=== PATIENT | female | born 1980 | race Hispanic/Latino ===

== ENCOUNTER 2019-03-30 04:56 | Emergency (ER) | payer SELFPAY ==
[~2019-03-30] VITALS: Ht 160 cm; Wt 100.0 kg
[~2019-03-30 04:56] MED LIST: CIPRO500 MG OR; NO MEDS
[2019-03-30 05:30] LABS: HEMATOCRIT 40.8 % (37.0-47.0); IMMATURE GRANULOCYTES 0.3 % (0.0-5.0); MEAN CELL VOLUME 90.9 fL CALC (80.0-100.0); MEAN CORPUSCULAR HGB 31.2 pG CALC (26.0-32.0); MEAN CORPUSCULAR HGB CONC 34.3 g/L CALC (32.0-36.0); NEUT# 5.39 thou/uL (2.00-7.15); RED BLOOD COUNT 4.49 mill/uL (4.20-5.60); RED CELL DISTRI WIDTH 12.8 % (11.5-15.5)
[2019-03-30 05:37] LABS: URINE BILIRUBIN - DIPSTICK NEGATIVE (NEGATIVE); URINE BLOOD DIPSTICK NEGATIVE (NEGATIVE); URINE COLOR YELLOW; URINE GLUCOSE - DIPSTICK NEGATIVE (NEGATIVE); URINE KETONE NEGATIVE (NEGATIVE); URINE LEUK ESTERASE NEGATIVE (NEGATIVE); URINE NITRITE - DIPSTICK NEGATIVE (Negative); URINE PROTEIN - DIPSTICK NEGATIVE (NEG-TRACE); URINE UROBILINOGEN - DIPSTICK 0.2 E.U./dL (0.2)
[2019-03-30 05:41] LABS: ALBUMIN 4.5 g/dL (3.2-5.0); ALKALINE PHOSPHATASE 111 u/l (38-126); AMYLASE 34 u/l (30-110); ANION GAP 14 (6-22 (CALC)); BILIRUBIN, TOTAL 0.3 mg/dL (0.0-1.4); BUN 16 mg/dL (7-17); BUN/CREATININE RATIO 23 (12-20 (CALC)); CARBON DIOXIDE 25 mmol/l (22-30); CHLORIDE 105 mmol/l (95-108); CREATININE 0.7 mg/dL (0.5-1.0); GFR > 60 ML/MIN (>=60 (CALC)); GFR FOR AFR.AMER. > 60 ML/MIN (>=60 (CALC)); LIPASE 69 u/l (23-300); POTASSIUM 4.1 mmol/l (3.5-5.1); SGOT/AST 23 u/l (14-36); SODIUM 140 mmol/l (137-146); TOTAL PROTEIN 7.8 g/dL (6.3-8.2)
[2019-03-30] MEDS ORDERED: TORADOL PO (06:34)
[2019-03-30 06:51] VITALS: BP 112/58
== END 2019-03-30 06:45 | disposition home or self-care (01) | DRG 446 ==
LOC: ED 04:56
PROVIDERS: Family Medicine
DX: K80.20 Calculus of gallbladder without cholecystitis without obstruction (principal); K59.00 Constipation, unspecified

== ENCOUNTER 2020-02-06 14:28 | Emergency (ER) | payer BC ==
[~2020-02-06 14:28] MED LIST changes: +TORADOL PO
[2020-02-06 15:21] LABS: HEMATOCRIT 36.9 % (37.0-47.0); HEMOGLOBIN 12.7 g/dl (12.0-16.0); IMMATURE GRANULOCYTES 0.5 % (0.0-5.0); MEAN CELL VOLUME 90.9 fL CALC (80.0-100.0); MEAN CORPUSCULAR HGB 31.3 pG CALC (26.0-32.0); MEAN CORPUSCULAR HGB CONC 34.4 g/dL CAL (32.0-36.0); NEUT# 7.57 thou/uL (2.00-7.15); RED BLOOD COUNT 4.06 mill/uL (4.20-5.60); RED CELL DISTRI WIDTH 12.7 % (11.5-15.5)
[2020-02-06 15:28] LABS: URINE BILIRUBIN - DIPSTICK NEGATIVE (NEGATIVE); URINE BLOOD DIPSTICK LARGE (NEGATIVE); URINE COLOR YELLOW; URINE GLUCOSE - DIPSTICK NEGATIVE (NEGATIVE); URINE KETONE NEGATIVE (NEGATIVE); URINE LEUK ESTERASE TRACE (NEGATIVE); URINE NITRITE - DIPSTICK POSITIVE (Negative); URINE PH 6.5 (4.5-8.0); URINE PROTEIN - DIPSTICK NEGATIVE (NEG-TRACE); URINE UROBILINOGEN - DIPSTICK 0.2 E.U./dL (0.2)
[2020-02-06 15:30] LABS: ALBUMIN 4.2 g/dL (3.2-5.0); ALKALINE PHOSPHATASE 93 u/l (38-126); ANION GAP 13 (6-22 (CALC)); BILIRUBIN, TOTAL 0.3 mg/dL (0.0-1.4); BUN 12 mg/dL (7-17); BUN/CREATININE RATIO 24 (12-20 (CALC)); CARBON DIOXIDE 21 mmol/l (22-30); CHLORIDE 105 mmol/l (95-108); CREATININE 0.5 mg/dL (0.5-1.0); GFR > 60 ML/MIN (>=60 (CALC)); GFR FOR AFR.AMER. > 60 ML/MIN (>=60 (CALC)); LIPASE 35 u/l (23-300); POTASSIUM 3.8 mmol/l (3.5-5.1); SGOT/AST 21 u/l (14-36); SODIUM 135 mmol/l (137-146); TOTAL PROTEIN 7.3 g/dL (6.3-8.2)
[2020-02-06 15:35] LABS: AMYLASE < 30 u/l (30-110); URINE BACTERIA FEW hpf; URINE RBC 25-50 RBC/hpf (0-5); URINE SQUAMOUS EPITHELIAL CELL FEW EPI/hpf (0-FEW)
[2020-02-06] MEDS ORDERED: HYDROCO/APAP1 TA9 PO (18:06)
[2020-02-06] MEDS ORDERED: ONDANSETRON4 MG PO (18:06)
[2020-02-06 18:10] VITALS: BP 122/57
== END 2020-02-06 18:16 | disposition home or self-care (01) | DRG 446 ==
LOC: ED 14:28
DX: K80.20 Calculus of gallbladder without cholecystitis without obstruction (principal)

== ENCOUNTER 2020-02-06 22:08 | Emergency (ER) | payer BC ==
[~2020-02-06 22:08] MED LIST changes: +HYDROCO/APAP1 TA9 PO; +ONDANSETRON4 MG PO
[2020-02-06 23:39] VITALS: BP 150/87
== END 2020-02-06 23:39 | disposition home or self-care (01) | DRG 446 ==
LOC: ED 22:08
DX: K80.20 Calculus of gallbladder without cholecystitis without obstruction (principal)

== ENCOUNTER 2020-02-08 09:55 | Day surgery (SDC) | payer BC ==
[2020-02-08] VITALS (8 sets, daily range): BP systolic 105–122; BP diastolic 50–71
--- NOTE | 2020-02-08 14:44 | NUR ---
PT ARRIVED TO MED/SURG ROOM 263 IN STABLE CONDITION VIA STRETCHER ACCOMPANIED BY KARINA,RN AND JOSE,RN;PT TRANSFERRED TO HOSPITAL BED WITH X2 PERSON ASSIST;BEDSIDE REPORT RECEIVED AT THIS TIME;PT IS POST OP LAP SABAS 02/08/20;PT A&O X3,DROWSY.ORIENTED TO ROOM AND CALL LIGHT SYSTEM;PT REPORTS ABDOMINAL PAIN THAT STARTED 02/06/20,PT PRESENTED TO ER YESTERDAY 02/07/20 AND WAS D/C HOME TO F/U WITH ;PT REPORTS MINIMAL ADBOMINAL PAIN AT THIS TIME,PAIN SCALE AND REPORTING EDUCATED;RESPIRATIONS EVEN AND UNLABORED ON O2 @ 2L VIA NC,PT IS NOT HOME OXYGEN DEPENDENT.CLEAR LUNG SOUNDS;ABDOMEN DISTENDED/SOFT ON PALPATION AND HYPOACTIVE IN ALL 4 QUADRANTS,LAST BM 02/06/20;X4 ABDOMINAL INCISIONS NOTED WITH DERMABOND INTACT;STRONG PEDAL PULSES,SCD'S APPLIED;#20G TO LAC INFUSING LR @ 125ML/HR,SITE APPEARS HEALTHY;WT AND VS OBTAINED BY JOLEEN SELBY;ALLERGY BAND NOTED TO RIGHT ARM;PT DENIES ANY ADDITIONAL NEEDS AT THIS TIME AND IS ENCOURAGED TO CALL FOR ASSISTANCE IF NEEDED;FALL PRECAUTIONS IN PLACE WITH BED IN THE LOWEST POSITION AND CALL LIGHT IN REACH;WILL CONTINUE TO MONITOR
--- NOTE | 2020-02-08 16:20 | NUR ---
PT APPEARS TO BE SLEEPING IN SEMI FOWLERS POSITION;RESPIRATIONS REMAIN EVEN AND UNLABORED ON O2 @ 2L VIA NC;NO S/S OF DISTRESS NOTED;IV FLUIDS INFUSING WITH EASE PER ORDER;ALL SAFETY PRECAUTIONS REMAIN IN PLACE WITH BED IN THE LOWEST POSITION AND CALL LIGHT IN REACH;WILL CONTINUE TO MONITOR
--- NOTE | 2020-02-08 17:17 | NUR ---
HOME MEDICATION SENT TO PHARMACY.
--- NOTE | 2020-02-08 19:00 | NUR ---
RECIEVED REPORT FROM NURSE NILS, PATIENT RESTING IN BED, TALKING ON THE PHONE, BREATHING EVEN AND UNLABORED, CALL LIGHT AT REACH.
--- NOTE | 2020-02-08 20:30 | NUR ---
PATIENT ALERT ORIENTED, S/P LAP SABAS WITH 4 INCISION WITH DERMABOND CLEAN AND DRY, WITH ONGOING IV OF LR @ 125CC/HR G20 LBM 02/05, C/O PAIN MEDICATED, PATIENT EDUCATED ON THE USED OF SPIROMETER PERFORMED. WILL CONTINUE TO MONITOR.
--- NOTE | 2020-02-09 00:51 | NUR ---
PATIENT APPEARS TO BE SLEEPING WITH EYES CLOSED, WITH EVEN UNLABORED BREATHING CALL LIGHT AT REACH.
[2020-02-09 03:55] VITALS: BP 105/63
--- NOTE | 2020-02-09 03:59 | NUR ---
PATIENT APPEARS TO BE SLEEPING WITH EYES CLOSED, WITH EVEN UNLABORED BREATHING NO DISCOMFORTS NOTED AT THIS TIME.
--- NOTE | 2020-02-09 07:28 | NUR ---
RECIEVED REPORT FROM ROBERTO GUY. PT RESTING IN SEMI FOWLERS POSTITON UPON ENTERING ROOM. INTRODUCED SELF TO PT AND DISCUSSED POC. LACTED RINGERS RUNNING AT 125 ML ORDERED, SITE APPEARS HEALTHY AND PATENT.PT DENIES ANY PAIN OR DISCOMFORTS AT THIS TIME. ALL SAFTEY PRECAUTIONS IN PLACE WITH CALL LIGHT IN REACH. WILL CONTINUE TO MONITOR
[2020-02-09 09:30] VITALS: BP 107/56
--- NOTE | 2020-02-09 09:30 | NUR ---
ASSESMENT AND VITALS COMPLETE BP 107/56, HR 67, O2 97% ON ROOM AIR. RESPIRATIONS ARE EVEN AND UNLABORED. HEART RATE IS NORMAL, BOWEL SOUNDS ARE ACTIVE WITH NO TENDERENESS , LUNGS SOUNDS ARE CLEAR. IV RUNNING @125ML ORDERED, SIT APPEARS HEALTHY AND PATENT. RADIAL AND PEDAL PULSES ARE STRONG, NO EDEMA. INCISION SITES ARE CLEAN AND DRY, NO APPERANCE OF EDEMA. PT DENIES ANY PAIN OR DISCOMFORTS AT THIS TIME. ALL SAFTEY PRECAUTIONS IN PLACE WITH CALL LIGHT IN REACH. WILL CONTINUE TO MONIOTR
--- NOTE | 2020-02-09 09:36 | NUR ---
AT BEDSIDE DISCUSSING POC.
[2020-02-09] MEDS ORDERED: PERCOCET 5/325M1 TAB PO (09:45)
[2020-02-09 11:38] VITALS: BP 121/68
--- NOTE | 2020-02-09 11:38 | NUR ---
ALL DISCHARGE INSTRUCTIONS PROVIDED AT THIS TIME BY [facility];PT INSTRUCTED TO F/U WITH IN ONE WEEK AND MAY SHOWER;RX FOR PERCOCET PROVIDED AND PT INSTRUCTED TO TAKE DIRECTED;IV SITE REMOVED WITH CATHETER INTACT;HOME MEDICATIONS PROVIDED FROM PHARMACY;PT DENIES ANY ADDITIONAL NEEDS;WHEELCHAIR TO BE PROVIDED FOR D/C HOME;PT TO TRANSPORT SELF HOME.
--- NOTE | 2020-02-09 11:51 | NUR ---
Discharge instructions given. Patient verbalizes understanding of same. Discharged in stable condition via Wheelchair to Home with *Other. All belongings sent with pt. PT TRANSPORTED TO [facility] IN STABLE CONDITION VIA WHEELCHAIR ACCOMPANIED BY JOLEEN HASKINS. PT TO TRANSPORT SELF HOME.
--- NOTE | 2020-02-09 13:03 | NUR ---
PT note Patient screened for rehab from nursing assessment. She has no rehab needs at this time
== END 2020-02-09 11:51 | disposition home or self-care (01) | DRG 418 ==
LOC: MS2 09:55 → ORM 09:55 → EDSTATUS 11:54 → MS2 14:42 → ORM 02-09 11:51
PROVIDERS: ATTEND Surgery
PROC: 0FT44ZZ Resection of Gallbladder, Percutaneous Endoscopic Approach (ICD-10-PCS; principal; 2020-02-08)
PROC: BF001ZZ Plain Radiography of Bile Ducts using Low Osmolar Contrast (ICD-10-PCS; 2020-02-08)
DX: K80.00 Calculus of gallbladder with acute cholecystitis without obstruction (principal); K82.1 Hydrops of gallbladder; R82.71 Bacteriuria; Z11.59 Encounter for screening for other viral diseases
CPT/HCPCS: J1100; Q9967